=== PATIENT | female | born 1975 ===

== ENCOUNTER → 2020-04-05 11:38 | Outpatient (CLI) | payer OTHER, MEDICAID, SELFPAY ==
[2020-04-06 02:11] LABS: COVID19 Sendout Not Detected (Not Detect)
== END ==
PROVIDERS: Visit Provider Physician Assistant
DX: Z01.812 Encounter for preprocedural laboratory examination (principal)
CPT/HCPCS: 87635

== ENCOUNTER → 2020-04-07 14:40 | Outpatient (CLI) | payer OTHER, MEDICAID, SELFPAY ==
--- NOTE | 2020-04-07 15:53 | P.PCN_ITS ---
Cardiac Stress Test Report Referral & Results Date Patient Seen: 04/07/20 Time Patient Seen: 15:53 Requesting provider: Kaylyn Boswell Indication: chest pain Rest ECG: normal sinus rhythm Procedure Note: standard cristobal protocol 1:43 min 2.1 mets +75% adele markedly reduced exercise capacity. submaximal test due to extreme patient deconditioni ng. Pt could not meet target heart rate. During exercise unable to take blood pressure due to body habitus. no chest pain. pt did have HERNANDEZ. resting ekg normal, no st shifts or arrythmias. Impression: suboptimal stress test Please note: Actual ECG tracings can be found in the PACS system.
--- NOTE | 2020-04-09 06:50 | DI.NM.S_ITS ---
DATE OF SERVICE: 04/07/2020 PROCEDURE: Exercise perfusion study. INDICATION: Exertional chest pain and shortness of breath. RADIOPHARMACEUTICAL: 25.8 millicurie technetium-99m Myoview IV was injected at stress and 23.8 millicurie technetium-99m Myoview IV was injected at rest. CARDIAC STRESS: The patient underwent exercise stress test under the supervision of an attending staff. She walked on Vitaly protocol for a total of about 3 minutes and achieved 83 percent of target heart rate with normal blood pressure response. She was unstable on treadmill and had significant shortness of breath. Hence, it was discontinued. No chest pain. Baseline rhythm was sinus. During stress, no convincing ischemic changes seen. No significant arrhythmia seen. RAW DATA: Breast shadow, as well as diaphragmatic shadow seen. Patient's weight is 350 pounds. GATED STUDY: Stress LV ejection fraction is 74 percent without any obvious wall motion abnormalities. Resting end-diastolic volume 152 mL. TID ratio is 0.99, which is within normal limits. Lung-heart ratio 0.30, which is within normal limits. Resting LV ejection fraction is 74 percent, as well. PERFUSION SCAN: Please note that there are no prone images. Stress supine and stress prone images were compared to each other. Stress supine images revealed a small size, mildly decreased perfusion of inferior wall, including the inferoapex. Resting supine images reveal a small size, mildly decreased perfusion of inferior wall, sparing inferoapex. There is a distal anteroseptal defect seen at resting supine images, as well. CONCLUSION: There is a mild reversibility of inferoapex during stress supine, along with predominantly fixed, small size mildly decreased perfusion of inferior wall. The patient's weight is 350 pounds. During the raw images, significant breast shadow and diaphragmatic shadow and increased subdiaphragmatic activity seen. On gated study, the stress LV ejection fraction is 74 percent without any wall motion abnormalities. Normal wall motion goes against the diagnosis of previous transmural myocardial infarction. Hence, suspect above-mentioned defect, likely due to tissue attenuation artifact. Mild reversibility in inferoapex could be due to shifting tissue attenuation artifact. Very poor exercise tolerance. Significant shortness of breath during stress. As far as perfusion scan is concerned, it does not appear to be high risk based on preserved left ventricular function without any significant wall motion abnormalities and no significant convincing ischemia or infarction pattern. Correlate clinically. Tricia Fulton - RAHUL/isma/jackie doc#: [id number]/job#: [id number] dd: 04/08/2020 12:53:00 dt: 04/08/2020 17:59:00 DICTATING MD/COPIES TO: Ezekiel Aceves MD COPIES MNE: KENDRA;
== END ==
PROVIDERS: Referring Provider Physician Assistant; Visit Provider Physician Assistant
DX: I20.8 Other forms of angina pectoris (principal); R06.02 Shortness of breath
CPT/HCPCS: 78452; 93017; A9502